=== PATIENT | male | born 1955 | race Caucasian/White ===

== ENCOUNTER 2024-11-30 16:09 | Emergency (ER) | payer MEDICARE, OTHER ==
[2024-11-30] MEDS ORDERED: Azithromycin 250 MG Tab PO ONE (16:10)
== END 2024-11-30 16:50 | disposition home or self-care (01) ==
LOC: FB.ED 16:09
DX: J20.9 Acute bronchitis, unspecified (principal); I12.9 Hypertensive chronic kidney disease with stage 1 through stage 4 chronic kidney disease, or unspecified chronic kidney disease; N18.9 Chronic kidney disease, unspecified; J45.909 Unspecified asthma, uncomplicated; Z87.891 Personal history of nicotine dependence; Z88.1 Allergy status to other antibiotic agents; Z88.2 Allergy status to sulfonamides
CPT/HCPCS: 99283; A9270